=== PATIENT | female | born 1950 | race African-American/Black ===

== ENCOUNTER 2017-04-30 08:41 | Emergency (ER) | payer MEDICARE, OTHER ==
[2017-04-30] MEDS ORDERED: ASPIRIN 81 MG TABLET, CHEWABLE PO ONE (08:43)
[2017-04-30] MEDS ORDERED: MAG HYDROX/AL HYDROX/SIMETH SUSP 30 ML UDCUP PO ONE (09:26)
[2017-04-30] MEDS ORDERED: METOCLOPRAMIDE HCL ORAL SOLN 10 MG/10 ML UDCUP PO ONE (09:26)
[2017-04-30] MEDS ORDERED: LIDOCAINE 2% VISCOUS SOLN 20 ML UDCUP PO ONE (09:26)
[2017-04-30 09:34] LABS: ABSOLUTE LYMPHOCYTES (AUTO) 0.8 10^3/uL (0.5-4.7); ABSOLUTE MONOCYTES (AUTO) 0.5 10^3/uL (0.1-1.4); BASOPHILS % (AUTO) 0.3 % (0-2); EOSINOPHILS % (AUTO) 0.1 % (0-6); HEMATOCRIT 39.1 % (36.0-47.0); HEMOGLOBIN 13.1 g/dL (12.0-15.5); HGB HCT DIFFERENCE 0.2; LYMPHOCYTES % (AUTO) 9.5 % (13-45); MEAN CORPUSCULAR HEMOGLOBIN 30.6 pg (27.0-33.4); MEAN CORPUSCULAR HGB CONC 33.6 g/dL (32.0-36.0); MEAN CORPUSCULAR VOLUME 91 fl (80-97); MONOCYTES % (AUTO) 6.1 % (3-13); RED BLOOD COUNT 4.29 10^6/uL (3.72-5.28); RED CELL DISTRIBUTION WIDTH 14.2 % (11.5-14.0); WHITE BLOOD COUNT 8.3 10^3/uL (4.0-10.5)
--- NOTE | 2017-04-30 09:38 | ER Document Report ---
ED Cardiac - General Chief Complaint: Chest Pain > 30 Stated Complaint: CHEST PAIN Time Seen by Provider: 04/30/17 09:15 Information source: Patient Notes: Patient is a 67-year-old female that states the onset around 1 week ago of some substernal "pressure". She states it is not exertional. It is worse after she eats and lays flat. It is relieved when she sits upwards. She denies any radiation, nausea, vomiting, diaphoresis, calf pain, leg swelling, or recent trips or travel. Patient denies any past history of smoking. She denies any family history of early heart attacks or strokes. Patient states that the pressure has been intermittent and she went to the urgent care today with her primary care physician and she was referred to this location. Patient denies any abdominal pain cough, or shortness of breath when sitting upright. TRAVEL OUTSIDE OF THE [place] IN LAST 30 DAYS: No - HPI Patient complains to provider of: Other - See above Was the onset of pain: Gradual Is the pain a: New problem Chest pain location: Substernal Quality of pain: Other - See above Chest pain radiation location: None Severity now: None Severity at worst: Mild Pain level currently: Denies Chest pain precipitating factors: See above Cardiac risk factors: None Positive cardiac history: No Associated symptoms: Other - See above Exacerbated by: Other - See above Relieved by: Nothing Similar symptoms previously: No Recently seen / treated by doctor: Yes - Related Data Allergies/Adverse Reactions: Sulfa (Sulfonamide Antibiotics) Allergy (Verified 09/11/13 11:21) Past Medical History - General Information source: Patient - Social History Smoking Status: Never Smoker Cigarette use (# per day): No Chew tobacco use (# tins/day): No Smoking Education Provided: No Frequency of alcohol use: None Drug Abuse: None Family History: Reviewed & Not Pertinent Patient has suicidal ideation: No Patient has homicidal ideation: No Renal/ Medical History: Denies: Hx Peritoneal Dialysis - Immunizations Hx Diphtheria, Pertussis, Tetanus Vaccination: Yes Review of Systems - Review of Systems Constitutional: denies: Fever EENT: denies: Eye discharge, Nose discharge Cardiovascular: denies: Palpitations, Heart racing Respiratory: denies: Cough, Hemoptysis Gastrointestinal: denies: Vomiting Genitourinary: denies: Dysuria Musculoskeletal: denies: Leg swelling Skin: Other - no hives. denies: Rash Neurological/Psychological: Other - no slurred speech -: Yes All other systems reviewed and negative Physical Exam - Vital signs Vitals: Resp Pulse Ox 15 97 04/30/17 08:55 04/30/17 08:55 Notes: Reviewed vital signs and nursing note as charted by RN. CONSTITUTIONAL: Alert and oriented and responds appropriately to questions. Well -appearing; well-nourished HEAD: Normocephalic; atraumatic CARD: Regular rate and rhythm; no murmurs, no clicks, no rubs, no gallops; symmetric distal pulses RESP: Normal chest excursion without splinting or tachypnea; breath sounds clear and equal bilaterally; no wheezes, no rhonchi, no rales ABD/GI: Normal bowel sounds; non-distended; soft, non-tender palpation of the upper quadrant of the abdomen BACK: The back appears normal and is non-tender to palpation, there is no CVA tenderness EXT: Normal ROM in all joints; non-tender to palpation; no cyanosis, no effusions, no edema SKIN: No acute lesions noted NEURO: Moves all extremities equally; Motor and sensory function intact PSYCH: The patient's mood and manner are appropriate. Grooming and personal hygiene are appropriate. Course - Re-evaluation Re-evalutation: 04/30/17 09:36 Given the history, physical, EKG as recorded, vital signs, pressure when laying flat and relieved when sitting up as well as exacerbated by food, with no abdominal tenderness, I will obtain basic labs, cardiac labs, BNP, and treat the patient with an acid medications initially. I do believe pulmonary embolism , aortic dissection, or esophageal rupture to be extremely unlikely. Patient does not smoke, has no past medical history, has no family history, is not obese, and has a borderline EKG. EKG shows a heart of 90, normal sinus rhythm, normal axis, no obvious ST elevation or depression, flattening T waves in leads III, aVF, V4 through V6 04/30/17 10:11 Initial troponin as recorded. Patient denies any pain or pressure at this time. BNP is recorded. Chest x-ray shows normal heart, normal mediastinum, no fractures, normal lung goff, no pneumothorax. 04/30/17 10:13 Patient's heart score is a 3. Management Scores 0-3: 0.9-1.7% risk of adverse cardiac event. In the HEART Score study, these patients were discharged (0.99% in the retrospective study, 1.7% in the prospective study) The heart pathway, with a repeat 3 hour troponin, is even more sensitive. We will order a repeat 3 hour troponin. If this also is unremarkable, we will help expedite the patient's follow-up to a kiln burner with strict return precautions. 04/30/17 14:18 Second troponin as recorded. I called and spoke directly to the kiln burner, Dr. Murphy. I have explained the entire story. He is aware of the patient's physical, history, and repeat troponins. Repeat EKG shows a heart of 93, normal sinus rhythm, similar-appearing axis, continued flattening T waves laterally. Antit[employer] Assault Gunner is comfortable with the patient being discharged home and actually gave me his personal cell phone so that she can schedule follow-up appointment. Return precautions have been explained and we will start the patient on antacid medications. - Vital Signs Vital signs: Temp Pulse Resp BP Pulse Ox 98.2 F 15 139/69 H 95 04/30/17 08:56 04/30/17 11:04 04/30/17 11:04 04/30/17 11:04 - Laboratory Result Diagrams: 04/30/17 09:20 04/30/17 09:20 Laboratory results interpreted by me: 04/30/17 04/30/17 09:20 09:20 RDW 14.2 H Seg Neutrophils % 84.0 H Lymphocytes % 9.5 L Glucose 115 H Alkaline Phosphatase 128 H Discharge - Discharge Clinical Impression: Chest discomfort Condition: Good Disposition: HOME, SELF-CARE Additional Instructions: Come back immediately with any change in location or quality of pressure, leg swelling, fevers, vomiting, or any other acute problems. Please make sure you call the kiln burner, Dr. Murphy on his personal phone at [phone] when you are discharged today to help set up an expedited follow-up appointment with cardiology Prescriptions: Pantoprazole Sodium 20 mg PO DAILY #30 tablet.dr Referrals: APRIL LEPE MD [Primary Care Provider] - Follow up as needed
--- NOTE | 2017-04-30 09:41 | RADIOLOGY REPORT (SQ) ---
EXAM DESCRIPTION: CHEST SINGLE VIEW COMPLETED DATE/TIME: 04/30/2017 9:17 am REASON FOR STUDY: cp COMPARISON: None. EXAM PARAMETERS: NUMBER OF VIEWS: One view. TECHNIQUE: Single frontal radiographic view of the chest acquired. RADIATION DOSE: NA LIMITATIONS: None. FINDINGS: LUNGS AND PLEURA: Blunting of the left costophrenic angle most likely due to pleural thick ening. MEDIASTINUM AND HILAR STRUCTURES: No masses. Contour normal. HEART AND VASCULAR STRUCTURES: Cardiomegaly. Normal vasculature. BONES: No acute findings. HARDWARE: None in the chest. OTHER: No other significant finding. IMPRESSION: NO ACUTE RADIOGRAPHIC FINDING IN THE CHEST. TECHNICAL DOCUMENTATION: JOB ID: [id number] [employer]- All Rights Reserved
--- NOTE | 2017-04-30 09:54 | EKG REPORT ---
SEVERITY:- BORDERLINE ECG - SINUS RHYTHM BORDERLINE T ABNORMALITIES, INFERIOR LEADS : Confirmed by: Julio César Nice 30-Apr-2017 09:54:03
[2017-04-30 09:55] LABS: ALANINE AMINOTRANSFERASE 27 U/L (9-52); ALBUMIN 4.1 g/dL (3.5-5.0); ALKALINE PHOSPHATASE 128 U/L (38-126); ANION GAP 12 (5-19); ASPARTATE AMINO TRANSFERASE 21 U/L (14-36); BILIRUBIN,DIRECT 0.3 mg/dL (0.0-0.4); BILIRUBIN,TOTAL 1.3 mg/dL (0.2-1.3); BLOOD UREA NITROGEN 13 mg/dL (7-20); CALCIUM 9.4 mg/dL (8.4-10.2); CARBON DIOXIDE 26 mmol/L (22-30); CHLORIDE 103 mmol/L (98-107); CREATINE KINASE 76 U/L (30-135); CREATININE RESULT 0.77 mg/dL (0.52-1.25); GLUCOSE 115 mg/dL (75-110); POTASSIUM 4.2 mmol/L (3.6-5.0); SODIUM 140.9 mmol/L (137-145); TOTAL PROTEIN 7.3 g/dL (6.3-8.2)
[2017-04-30 10:07] LABS: CREATINE KINASE MB 0.24 ng/mL (<4.55)
[2017-04-30 10:09] LABS: TROPONIN I < 0.012 ng/mL
[2017-04-30 14:39] VITALS: BP 144/69
--- NOTE | 2017-04-30 20:46 | EKG REPORT ---
SEVERITY:- NORMAL ECG - SINUS RHYTHM : Confirmed by: Julio César Nice 30-Apr-2017 20:46:00
== END 2017-04-30 14:46 | disposition home or self-care (01) ==
LOC: ER 08:41
DX: R07.9 Chest pain, unspecified (principal); Z88.2 Allergy status to sulfonamides
CPT/HCPCS: 93005; 99285; 36415; 82553; 82550; 85025; 80053; 84484; 83880; 71010; 93010; J3490; A9270

== ENCOUNTER 2017-05-11 11:30 | Observation (INO) | payer MEDICARE, OTHER ==
[2017-05-11] MEDS ORDERED: ADENOSINE INJ/PF 6 MG/2 ML SDV IV ONE ×3 (11:52→12:08)
[2017-05-11] MEDS ORDERED: ASPIRIN 81 MG TABLET, CHEWABLE PO ONE (11:59)
[2017-05-11] MEDS ORDERED: LABETALOL HCL INJ 20 MG/4 ML DISP.SYRIN IV ONE (12:13)
--- NOTE | 2017-05-11 12:16 | ER Document Report ---
ED General - General Chief Complaint: Irregular Pulse Stated Complaint: RAPID HEART RATE Time Seen by Provider: 05/11/17 11:43 Mode of Arrival: Ambulatory Information source: Patient Notes: 67 yr old female presents with hx of chest pain from Dr Norris carr with concerns of heart racing. pt denies any fevers or chills. notes heart raced today. 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 IN LAST 30 DAYS: No - HPI Onset: Just prior to arrival Onset/Duration: Sudden Quality of pain: No pain Severity: Moderate Pain Level: Denies Associated symptoms: Shortness of breath Exacerbated by: Denies Relieved by: Denies Similar symptoms previously: Yes Recently seen / treated by doctor: Yes - Related Data Allergies/Adverse Reactions: Sulfa (Sulfonamide Antibiotics) Allergy (Verified 05/11/17 11:31) Home Medications: Current Home Medications No Home Medications 05/11/17 [History] Past Medical History - Social History Smoking Status: Never Smoker Cigarette use (# per day): No Chew tobacco use (# tins/day): No Smoking Education Provided: No Family History: Reviewed & Not Pertinent Renal/ Medical History: Denies: Hx Peritoneal Dialysis - Immunizations Hx Diphtheria, Pertussis, Tetanus Vaccination: Yes Review of Systems - Review of Systems Notes: REVIEW OF SYSTEMS: CONSTITUTIONAL : Denies fever, chills, or sweats. Denies recent illness. EENT: Denies eye, ear, throat, or mouth pain or symptoms. Denies nasal or sinus congestion or discharge. Denies throat, tongue, or mouth swelling or difficulty swallowing. CARDIOVASCULAR: admits to palpitations RESPIRATORY: Denies cough, cold, or chest congestion. Denies shortness of breath, difficulty breathing, or wheezing. GASTROINTESTINAL: Denies abdominal pain or distention. Denies nausea, vomiting , or diarrhea. Denies blood in vomitus, stools, or per rectum. Denies black, tarry stools. Denies constipation. GENITOURINARY: Denies difficulty urinating, painful urination, burning, frequency, blood in urine, or discharge. FEMALE GENITOURINARY: Denies vaginal bleeding, heavy or abnormal periods, irregular periods. Denies vaginal discharge or odor. MUSCULOSKELETAL: Denies back or neck pain or stiffness. Denies joint pain or swelling. SKIN: Denies rash, lesions or sores. HEMATOLOGIC : Denies easy bruising or bleeding. LYMPHATIC: Denies swollen, enlarged glands. NEUROLOGICAL: Denies confusion or altered mental status. Denies passing out or loss of consciousness. Denies dizziness or lightheadedness. Denies headache. Denies weakness or paralysis or loss of use of either side. Denies problems with gait or speech. Denies sensory loss, numbness, or tingling. Denies seizures. PSYCHIATRIC: Denies anxiety or stress. Denies depression, suicidal ideation, or homicidal ideation. ALL OTHER SYSTEMS REVIEWED AND NEGATIVE. PHYSICAL EXAMINATION: GENERAL: Well-appearing, well-nourished and in no acute distress. HEAD: Atraumatic, normocephalic. EYES: Pupils equal round and reactive to light, extraocular movements intact, conjunctiva are normal. ENT: Nares patent, oropharynx clear without exudates. Moist mucous membranes. NECK: Normal range of motion, supple without lymphadenopathy LUNGS: Breath sounds clear to auscultation bilaterally and equal. No wheezes rales or rhonchi. HEART: initially pt is in svt 160s, then intermittently NSR, then back into afib ABDOMEN: Soft, nontender, nondistended abdomen. No guarding, no rebound. No masses appreciated. Female : deferred Musculoskeletal: Normal range of motion, no pitting or edema. No cyanosis. NEUROLOGICAL: Cranial nerves grossly intact. Normal speech, normal gait. Normal sensory, motor exams PSYCH: Normal mood, normal affect. SKIN: Warm, Dry, normal turgor, no rashes or lesions noted. Dictation was performed using [employer] voice recognition software Physical Exam - Vital signs Vitals: Temp Pulse Resp BP Pulse Ox 98.5 F 162 H 18 122/80 96 05/11/17 11:42 05/11/17 11:42 05/11/17 11:42 05/11/17 11:42 05/11/17 11:42 Course - Re-evaluation Re-evalutation: 05/11/17 12:15 Patient noted to be in SVT in the 160s upon arrival, adenosine was drawn but she immediately converted, by the time we attempted to get another EKG she went back into SVT again. And then reconverted again. Pt given metoprolol 05/11/17 12:59 Pt now in afib. Will admit 05/11/17 19:45 Patient intermittently will go back up to the 140s is in no distress denies any chest pain - Vital Signs Vital signs: Temp Pulse Resp BP Pulse Ox 98.4 F 91 18 110/56 L 98 05/11/17 17:35 05/11/17 17:35 05/11/17 17:35 05/11/17 17:35 05/11/17 17:24 - Laboratory Result Diagrams: 05/11/17 11:46 05/11/17 11:46 Laboratory results interpreted by me: 05/11/17 05/11/17 11:46 11:46 RDW 14.5 H Plt Count 494 H Seg Neutrophils % 81.7 H Lymphocytes % 11.1 L Absolute Neutrophils 8.5 H Glucose 142 H Total Bilirubin 1.8 H Direct Bilirubin 0.9 H AST 64 H ALT 63 H Alkaline Phosphatase 216 H - Diagnostic Test Radiology reviewed: Image reviewed, Reports reviewed - EKG Interpretation by Me EKG shows normal: Sinus rhythm, [place], Intervals, QRS Complexes, ST-T Waves Rhythm: SVT When compared to previous EKG there are: Other - 3 EKGs were performed to noting SVT Critical Care Note - Critical Care Note Total time excluding time spent on procedures (mins): 55 Comments: 55 minutes of critical care time spent in direct contact evaluating and reevaluating the patient, treating symptoms, reviewing labs and studies and speaking with family and consultants excluding any procedures Discharge - Discharge Clinical Impression: Atrial fibrillation with RVR, SVT (supraventricular tachycardia) Condition: Stable Disposition: ADMITTED INPATIENT Admitting Provider: Hospitalist Unit Admitted: Telemetry
[2017-05-11 12:21] LABS: ABSOLUTE BASOPHILS # (AUTO) 0.1 10^3/uL (0.0-0.2); ABSOLUTE LYMPHOCYTES (AUTO) 1.1 10^3/uL (0.5-4.7); ABSOLUTE MONOCYTES (AUTO) 0.6 10^3/uL (0.1-1.4); ABSOLUTE NEUT (AUTO) 8.5 10^3/uL (1.7-8.2); BASOPHILS % (AUTO) 0.6 % (0-2); EOSINOPHILS % (AUTO) 0.4 % (0-6); HEMATOCRIT 37.6 % (36.0-47.0); HEMOGLOBIN 12.5 g/dL (12.0-15.5); HGB HCT DIFFERENCE -0.1; LYMPHOCYTES % (AUTO) 11.1 % (13-45); MEAN CORPUSCULAR HEMOGLOBIN 29.8 pg (27.0-33.4); MEAN CORPUSCULAR HGB CONC 33.2 g/dL (32.0-36.0); MEAN CORPUSCULAR VOLUME 90 fl (80-97); MONOCYTES % (AUTO) 6.2 % (3-13); RED CELL DISTRIBUTION WIDTH 14.5 % (11.5-14.0); SEGMENTED NEUTROPHILS % (AUTO) 81.7 % (42-78); WHITE BLOOD COUNT 10.3 10^3/uL (4.0-10.5)
[2017-05-11 12:41] LABS: ALANINE AMINOTRANSFERASE 63 U/L (9-52); ALBUMIN 3.6 g/dL (3.5-5.0); ALKALINE PHOSPHATASE 216 U/L (38-126); ANION GAP 18 (5-19); ASPARTATE AMINO TRANSFERASE 64 U/L (14-36); BILIRUBIN,DIRECT 0.9 mg/dL (0.0-0.4); BILIRUBIN,TOTAL 1.8 mg/dL (0.2-1.3); BLOOD UREA NITROGEN 16 mg/dL (7-20); CALCIUM 9.2 mg/dL (8.4-10.2); CARBON DIOXIDE 25 mmol/L (22-30); CHLORIDE 100 mmol/L (98-107); CREATINE KINASE 43 U/L (30-135); CREATININE RESULT 0.79 mg/dL (0.52-1.25); GLUCOSE 142 mg/dL (75-110); POTASSIUM 4.4 mmol/L (3.6-5.0); SODIUM 143.3 mmol/L (137-145); TOTAL PROTEIN 7.5 g/dL (6.3-8.2)
[2017-05-11 12:54] LABS: CREATINE KINASE MB < 0.22 ng/mL (<4.55); TROPONIN I < 0.012 ng/mL
--- NOTE | 2017-05-11 12:56 | RADIOLOGY REPORT (SQ) ---
EXAM DESCRIPTION: CHEST SINGLE VIEW COMPLETED DATE/TIME: 05/11/2017 12:42 pm REASON FOR STUDY: svt COMPARISON: 04/30/2017 EXAM PARAMETERS: NUMBER OF VIEWS: One view. TECHNIQUE: Single frontal radiographic view of the chest acquired. RADIATION DOSE: NA LIMITATIONS: None. FINDINGS: LUNGS AND PLEURA: There is a left pleural effusion. There is no infiltrate. There is no mass. MEDIASTINUM AND HILAR STRUCTURES: No masses. Contour normal. HEART AND VASCULAR STRUCTURES: Cardiomegaly with no failure. BONES: No acute findings. HARDWARE: None in the chest. OTHER: No other significant finding. IMPRESSION: Cardiomegaly with no failure. Left pleural effusion. TECHNICAL DOCUMENTATION: JOB ID: [id number] [employer]- All Rights Reserved
--- NOTE | 2017-05-11 13:41 | EKG REPORT ---
SEVERITY:- BORDERLINE ECG - SINUS TACHYCARDIA ALSO CONSIDER A FLUTTER WITH 2:1 CONDUCTION BORDERLINE T ABNORMALITIES, INFERIOR LEADS : Confirmed by: Julio César Nice 11-May-2017 13:41:19
--- NOTE | 2017-05-11 13:43 | EKG REPORT ---
SEVERITY:- ABNORMAL ECG - SUPRAVENTRICULAR TACHYCARDIA VS SINUS TACHYCARDIA BORDERLINE T ABNORMALITIES, LATERAL LEADS : Confirmed by: Julio César Nice 11-May-2017 13:42:51
[2017-05-11] MEDS ORDERED: ACETAMINOPHEN 325 MG TABLET PO PRN (14:16)
--- NOTE | 2017-05-11 14:42 | PDOC H&P ---
History of Present Illness Admission Date/PCP: 05/11/17 13:15 APRIL LEPE MD History of Present Illness: LIBBY BEARD is a 67 year old -[place] female with past medical history of recently diagnosed GERD who presents to the medical service with complaints of rapid heart rate. The patient was seen here initially back on 30 April. At that point she was noted to have elevated heart rate but it seemed to go down on its own. The treating ED physician felt that she likely had acid reflux and prescribed a PPI. The patient was supposed to follow-up in the office of Dr. Pisano for the rapid heart rate that was noted. She did that today. In the office her heart rate was found to be 160 and she was sent over to the emergency room. In the emergency room she was found to be in what what was felt to be SVT. The ED physician prepared to give her adenosine when the patient spontaneously converted to sinus rhythm. After a few more moments the patient went back into what looks like SVT. Once again the ED physician prepared to administer adenosine when she spontaneously occurred converted into sinus rhythm. Shortly thereafter the patient went into rapid atrial fibrillation. The ED physician gave her a dose of labetalol 20 mg IV. Currently her heart rate is at 117 at the bedside. Systolic blood pressure is 93 with a repeat at 103. The patient denies any palpitations or shortness of breath. She says she can tell when her heart rate increases because her breathing is "raspy." She does not feel it is shortness of breath or breathlessness. She denies any dizziness or associated lightheadedness. Past Medical History Medical History: None Past Surgical History Past Surgical History: Reports: Other - I and D of an abscess Social History Smoking Status: Never Smoker - Advance Directive Resuscitation Status: Full Code Family History Family History: None Parental Family History Reviewed: Yes - The patient's father at the age 59 from some sort of heart disease and Children Family History Reviewed: Yes Sibling(s) Family History Reviewed.: Yes - Patient has 5 siblings and they all have hypertension, diabetes and dyslipidemia. Medication/Allergy Home Medications: No Home Medications 05/11/17 Allergies/Adverse Reactions: Sulfa (Sulfonamide Antibiotics) Allergy (Verified 05/11/17 11:31) Review of Systems Review of Systems: Review of systems is pertinent as already listed in the HPI. In addition to this the patient states that she has been having sweats at night recently. She has had alternating diarrhea and constipation since she initially presented to the ED back on the fourth. She has had decreased appetite. This is occurred largely because she is afraid to eat with a diagnosis of GERD. She says that she has noted some spotting whenever she wipes after a bowel movement. She denies fevers, chills, nausea, vomiting, abdominal pain, unexplained weight changes, arthritis, visual changes, blood in the stool, blood in the urine, coughing up blood or throwing up blood. Her last meal was this morning. Physical Exam Vital Signs: Temp Pulse Resp BP Pulse Ox 98.5 F 162 H 17 102/60 96 05/11/17 11:42 05/11/17 11:42 05/11/17 13:05 05/11/17 13:51 05/11/17 13:51 Intake & Output 05/10/17 05/11/17 05/12/17 06:59 06:59 06:59 Weight 83.007 kg GENERAL: This a well-developed well-nourished appearing -[place] female resting in bed currently in no acute distress. HEENT: Normocephalic atraumatic. Sclera are anicteric. Trachea is midline. Moist mucous membranes. Dentition is fair. Mallampati 3. HEART: Tachycardic. No murmurs, rubs or gallops. LUNGS: Clear to auscultation bilaterally with equal rise and fall of the chest. ABDOMEN: Soft, nontender, nondistended with normoactive bowel sounds EXTREMETIES: No clubbing, cyanosis or edema. 2+ peripheral pulses bilaterally. Strength is 5 out of 5 in both the upper and lower extremities bilaterally. NEURO: Awake, alert and oriented 3. Cranial nerves II through XII are specifically intact. Results Impressions: Chest X-Ray 05/11/17 11:59 IMPRESSION: Cardiomegaly with no failure. Left pleural effusion. Assessment & Plan - Diagnosis (1) Atrial fibrillation with RVR Is this a current diagnosis for this admission?: Yes Plan: Begin metoprolol 25 every 12 hours. Cardiology has been consulted. The patient follows with Dr. Pisano. Dr. Huang on duty today. The patient is sustained in A. fib, will consider novel anticoagulant. Maintain rates at 110 or less. At the bedside the patient is currently 117. (2) SVT (supraventricular tachycardia) Is this a current diagnosis for this admission?: Yes Plan: Management as above. Ultimately the patient may need to see EP cardiology. (3) GERD (gastroesophageal reflux disease) Is this a current diagnosis for this admission?: Yes Plan: Continue omeprazole. - Time Time Spent: 30 to 50 Minutes - Inpatient Certification Medical Necessity: Need Close Monitoring Due to Risk of Patient Decompensation
[2017-05-11] MEDS ORDERED: ENOXAPARIN SODIUM INJ 40 MG/0.4 ML DISP.SYRIN SUBCUT ONE (15:00)
[2017-05-11] MEDS ORDERED: LABETALOL HCL INJ 20 MG/4 ML DISP.SYRIN IV PRN (17:21)
[2017-05-11] MEDS: FAMOTIDINE 20 MG TABLET PO SCH (21:53)
[2017-05-11] MEDS: METOPROLOL SUCCINATE 25 MG TAB.SR.24H PO SCH (21:53)
[2017-05-12 05:12] LABS: ABSOLUTE BASOPHILS # (AUTO) 0.1 10^3/uL (0.0-0.2); ABSOLUTE EOSINOPHILS # (AUTO) 0.1 10^3/uL (0.0-0.6); ABSOLUTE LYMPHOCYTES (AUTO) 1.4 10^3/uL (0.5-4.7); ABSOLUTE MONOCYTES (AUTO) 0.8 10^3/uL (0.1-1.4); ABSOLUTE NEUT (AUTO) 6.1 10^3/uL (1.7-8.2); BASOPHILS % (AUTO) 0.6 % (0-2); EOSINOPHILS % (AUTO) 0.7 % (0-6); HEMATOCRIT 30.6 % (36.0-47.0); HGB HCT DIFFERENCE 0.6; LYMPHOCYTES % (AUTO) 16.4 % (13-45); MEAN CORPUSCULAR HEMOGLOBIN 30.3 pg (27.0-33.4); MEAN CORPUSCULAR HGB CONC 33.9 g/dL (32.0-36.0); MEAN CORPUSCULAR VOLUME 90 fl (80-97); MONOCYTES % (AUTO) 9.6 % (3-13); RED BLOOD COUNT 3.42 10^6/uL (3.72-5.28); RED CELL DISTRIBUTION WIDTH 14.6 % (11.5-14.0); SEGMENTED NEUTROPHILS % (AUTO) 72.7 % (42-78); WHITE BLOOD COUNT 8.4 10^3/uL (4.0-10.5)
[2017-05-12 05:26] LABS: HEMOGLOBIN 10.4 g/dL (12.0-15.5)
[2017-05-12 05:28] LABS: ANION GAP 12 (5-19); BLOOD UREA NITROGEN 13 mg/dL (7-20); CALCIUM 8.6 mg/dL (8.4-10.2); CARBON DIOXIDE 26 mmol/L (22-30); CHLORIDE 104 mmol/L (98-107); CREATININE RESULT 0.73 mg/dL (0.52-1.25); GLUCOSE 127 mg/dL (75-110); MAGNESIUM 1.9 mg/dL (1.6-2.3); POTASSIUM 4.6 mmol/L (3.6-5.0); SODIUM 141.8 mmol/L (137-145)
--- NOTE | 2017-05-12 05:55 | EKG REPORT ---
SEVERITY:- NORMAL ECG - SINUS RHYTHM : Confirmed by: Julio César Nice 12-May-2017 05:54:21
[2017-05-12] MEDS: METOPROLOL SUCCINATE 25 MG TAB.SR.24H PO SCH (09:58)
[2017-05-12] MEDS: FAMOTIDINE 20 MG TABLET PO SCH ×2 (09:58→22:32)
[2017-05-12] MEDS: ENOXAPARIN SODIUM INJ 40 MG/0.4 ML DISP.SYRIN SUBCUT SCH (09:59)
[2017-05-12 10:20] LABS: FOLATE > 20.00 ng/mL (>2.76)
--- NOTE | 2017-05-12 11:29 | RADIOLOGY REPORT (SQ) ---
EXAM DESCRIPTION: CHEST PA/LAT COMPLETED DATE/TIME: 05/12/2017 11:14 am REASON FOR STUDY: cough/fever COMPARISON: 05/11/2017. 04/30/2017. TECHNIQUE: Frontal and lateral radiographic views of the chest acquired. NUMBER OF VIEWS: Two view. LIMITATIONS: None. FINDINGS: LUNGS AND PLEURA: Small left pleural effusion with associated left lower lobe volume loss. Doubt significant change compared to yesterday's radiograph. MEDIASTINUM AND HILAR STRUCTURES: 3.5 cm electronic appearing foreign body projects over the mid medi astinum. Seen on yesterday's exam. Not seen on 04/30/2017 study allowing for overlying monitor lead artifact. Presumably related to instrumentation. Ingested esophageal foreign body would otherwise b e in the differential. HEART AND VASCULAR STRUCTURES: Heart normal size. No evidence for failure. BONES: No acute findings. HARDWARE: See above. No other lines or tubes appreciated. OTHER: No other significant finding. IMPRESSION: 1. Chronic left lung changes. Left lower lobe volume loss and small associated pleural effusion. 2. Instrumentation versus artifact projecting over the mediastinum. TECHNICAL DOCUMENTATION: JOB ID: [id number] [employer]- All Rights Reserved
--- NOTE | 2017-05-12 15:39 | RADIOLOGY REPORT (SQ) ---
EXAM DESCRIPTION: CTA CHEST COMPLETED DATE/TIME: 05/12/2017 3:12 pm REASON FOR STUDY: SVT/Foriegn Body Left chest. COMPARISON: Radiographs from recently. TECHNIQUE: CT scan of the chest performed using helical scanning technique with dynamic intravenous contrast injection. Images reviewed with lung, soft tissue and bone windows. Reconstructed coronal and sagittal MPR images reviewed. Additional 3 dimensional post-processing performed to develop Maximal Intensity Projection images (VA P). All images stored on PACS. All CT scanners at this facility use dose modulation, iterative reconstruction, and/or weight based d osing when appropriate to reduce radiation dose to as low as reasonably achievable (ALARA). [facility]: Dose Right [facility]: CareDose [facility]: Dose Right [facility]: Teradose 4D [facility]: Kiddify CONTRAST TYPE AND DOSE: contrast/concentration: Isovue 370.00 mg/ml; Total Contrast Delivered: 72.9 ml; Total Saline Delivered: 80.0 ml Contrast bolus optimized for the pulmonary arteries. Not diagnostic for the aorta RENAL FUNCTION: Creatinine 0.7 RADIATION DOSE: CT Rad equipment meets quality standard of care and radiation dose reduction techniq ues were employed. CTDIvol: 14.6 - 39.7 mGy. DLP: 574 mGy-cm. . LIMITATIONS: None. FINDINGS: LUNGS AND PLEURA: Bilateral small to moderate pleural effusions. Associated mild volume l oss/ consolidation in the lung bases. More pronounced on the left. AORTA AND GREAT VESSELS: Sub optimal valuation of the aorta. No gross aneurysm. HEART: Mild pericardial effusion. Heart size enlarged. No significant coronary artery calcifications . PULMONARY ARTERIES: No emboli visualized in the main pulmonary arteries or the segmental branches. HILAR AND MEDIASTINAL STRUCTURES: No adenopathy. Metallic artifact in the mid esophagus appears to c orrelate with foreign body seen on chest radiographs. HARDWARE: None in the chest. UPPER ABDOMEN: Reflux of dense contrast into the IVC and slightly dilated hepatic veins. This sugges ts cardiac dysfunction. THYROID AND OTHER SOFT TISSUES: No masses. No adenopathy. BONES: No acute or significant finding. 3D MIPS: Confirm above findings. OTHER: No other significant finding. IMPRESSION: 1. Effusions, cardiac enlargement and reflux of contrast into upper abdominal veins. S uggestive of cardiac dysfunction. 2. Small pericardial effusion. 3. No pulmonary embolus. 4. Fore ign body is confirmed within the esophagus, uncertain etiology. COMMENT: Quality ID # [id number]: Final reports with documentation of one or more dose reduction techniques (e.g., Automated exposure control, adjustment of the mA and/or kV according to patient size, use of iterative reconstruction technique) TECHNICAL DOCUMENTATION: JOB ID: [id number] [employer]- All Rights Reserved
--- NOTE | 2017-05-12 18:48 | PDOC PROGRESS REPORT ---
Subjective Progress Note for:: 05/12/17 Subjective:: This is a follow-up visit for SVT. No acute events overnight. Patient was maintained quite well on metoprolol. Await Dr. Huang as evaluation. Patient has developed a cough overnight. Is nonproductive. Reason For Visit: ATRIAL FIBRILLATION WITH RAPID VENTRICULAR RESPONS Physical Exam Vital Signs: Temp Pulse Resp BP Pulse Ox 99.4 F 56 L 20 127/53 H 99 05/12/17 07:22 05/12/17 07:22 05/12/17 07:22 05/12/17 07:22 05/12/17 07:22 Intake & Output 05/11/17 05/12/17 05/13/17 06:59 06:59 06:59 Intake Total 5 Balance 5 Weight 83.1 kg GENERAL: This a well-developed well-nourished appearing -[place] female resting in bed currently in no acute distress. HEART: Regular rate and rhythm with frequent extra beats. No murmurs, rubs or gallops. LUNGS: Diminished at the bases bilaterally with equal rise and fall of the chest. ABDOMEN: Soft, nontender, nondistended with normoactive bowel sounds EXTREMETIES: No clubbing, cyanosis or edema. 2+ peripheral pulses bilaterally. NEURO: Awake, alert and oriented 3. Cranial nerves II through XII are specifically intact. Results Laboratory Results: 05/12/17 04:19 05/12/17 04:19 05/12/17 05/12/17 05/12/17 04:19 04:19 04:19 WBC 8.4 RBC 3.42 L Hgb 10.4 L D Hct 30.6 L MCV 90 MCH 30.3 MCHC 33.9 RDW 14.6 H Plt Count 385 Seg Neutrophils % 72.7 Lymphocytes % 16.4 Monocytes % 9.6 Eosinophils % 0.7 Basophils % 0.6 Absolute Neutrophils 6.1 Absolute Lymphocytes 1.4 Absolute Monocytes 0.8 Absolute Eosinophils 0.1 Absolute Basophils 0.1 Retic Count (auto) 1.31 Absolute Retic 0.045 Sodium 141.8 Potassium 4.6 Chloride 104 Carbon Dioxide 26 Anion Gap 12 BUN 13 Creatinine 0.73 Est GFR ( Amer) > 60 Est GFR (Non-Af Amer) > 60 Glucose 127 H Calcium 8.6 Magnesium 1.9 Iron TIBC % Saturation Ferritin Vitamin B12 Folate 05/12/17 04:19 WBC RBC Hgb Hct MCV MCH MCHC RDW Plt Count Seg Neutrophils % Lymphocytes % Monocytes % Eosinophils % Basophils % Absolute Neutrophils Absolute Lymphocytes Absolute Monocytes Absolute Eosinophils Absolute Basophils Retic Count (auto) Absolute Retic Sodium Potassium Chloride Carbon Dioxide Anion Gap BUN Creatinine Est GFR ( Amer) Est GFR (Non-Af Amer) Glucose Calcium Magnesium Iron 14.3 L TIBC 177 L % Saturation 8 Ferritin 682.00 H Vitamin B12 > 1000.0 H Folate > 20.00 05/11/17 15:42 Troponin I < 0.012 Impressions: Chest X-Ray 05/12/17 00:00 IMPRESSION: 1. Chronic left lung changes. Left lower lobe volume loss and small associated pleural effusion. 2. Instrumentation versus artifact projecting over the mediastinum. Chest/Abdomen CTA 05/12/17 00:00 IMPRESSION: 1. Effusions, cardiac enlargement and reflux of contrast into upper abdominal veins. Suggestive of cardiac dysfunction. 2. Small pericardial effusion. 3. No pulmonary embolus. 4. Foreign body is confirmed within the esophagus, uncertain etiology. Assessment & Plan - Diagnosis (1) Atrial fibrillation with RVR Is this a current diagnosis for this admission?: Yes Plan: Begin metoprolol 25 every 12 hours. Cardiology has been consulted. The patient follows with Dr. Pisano. Dr. Huang on duty today. The patient is now in sinus arrhythmia at a rate of 90. (2) SVT (supraventricular tachycardia) Is this a current diagnosis for this admission?: Yes Plan: Management as above. Ultimately the patient may need to see EP cardiology. (3) GERD (gastroesophageal reflux disease) Is this a current diagnosis for this admission?: Yes Plan: Continue omeprazole. - Time Time Spent with patient: 15-24 minutes Anticipated discharge: Home
--- NOTE | 2017-05-12 18:53 | Progress Note ---
Provider Note Provider Note: Spoke with Dr. Huang after I saw the patient who has seen the patient's chest x-ray and is concerned that we should check a CTA. He is already ordered this. CTA came back revealing foreign body and small pleural effusions. Notified by the patient's nurse that the patient now remembers that she had some sort of device implanted for her acid reflux. The only thing I can imagine that this is is some sort of pH monitor that would have been inserted. Will need to contact surgery since GI is not on service. I did speak with Dr. Mann by phone who was looked at the patient's scans. Given the patient's history is most likely a pH probe that will eventually passed after about a week. Given the lateness of the hour and the fact that the nurses just informed me that the patient had a transient rise in her heart rate on the way down to have the CAT scan, the patient will remain in house. We will continue to monitor not only her heart rate but her cough and any transient shortness of breath. Will increase metoprolol.
--- NOTE | 2017-05-12 18:54 | CONSULTATION REPORT E ---
Consultation Report NAME: LIBBY BEARD : 1950 AGE: 67Y DATE: 05/12/2017 ROOM: 306 A TO: JOSE HEARD M.D. FROM: CAMILLA TRONCOSO M.D. Requesting Physician TELEPHONE CONSULTATION REFERRING PHYSICIAN: The patient seen at the request of Dr. Troncoso. CHIEF COMPLAINT: Foreign body in the esophagus. PER CONSULTATION: The patient is a 67-year-old female who was admitted to the hospital with chest pain approximately 2 days ago. She was evaluated and found to have supraventricular tachycardia. She was managed on the hospital service with anti-dysrhythmic. She had a CTA of her chest to rule out pulmonary embolism which was negative for such but was found to have a foreign body in her esophagus. Surgery was consulted. Of note, the patient reports that approximately 3 days ago she underwent a pH probe monitor insertion at an outlying institution. Past medical and surgical history found in history and physical document, as well as review of systems and so forth. IMAGING STUDIES: I reviewed the CTA on the patient. There is a longitudinal metallic structure with scatter artifact in the distal third of the esophagus. There is no paraesophageal fluid, extravasation, etcetera. IMPRESSION: Foreign body of the esophagus consistent with a Matos pH monitoring device inserted last week during elective pH monitoring activation. No evidence of pathologic sequelae. DISCUSSION: I spoke with Dr. Troncoso. It is not uncommon for the pH Matos device to remain attached to the distal third of the esophagus for up to a week after insertion. The mucosa eventually with slough permitting the tubular device to leave the esophagus and pass through the GI tract uneventfully. There is no indication for further intervention. Please consult again if needed. DICTATING PHYSICIAN: JOSE HEARD M.D. [id number] PHY#: [id number] ID: [id number] JOB#: [id number] ACCT: [id number] cc:JOSE HEARD M.D. >
[2017-05-12] MEDS ORDERED: METOPROLOL SUCCINATE 50 MG TAB.SR.24H PO ONE ×2 (19:15→22:30)
[2017-05-12] MEDS ORDERED: METOPROLOL TARTRATE 50 MG TABLET ONE (22:21)
--- NOTE | 2017-05-12 23:11 | EKG REPORT ---
SEVERITY:- NORMAL ECG - SINUS RHYTHM : Confirmed by: Julio César Nice 12-May-2017 23:10:12
[2017-05-13 05:08] LABS: ABSOLUTE BASOPHILS # (AUTO) 0.1 10^3/uL (0.0-0.2); ABSOLUTE EOSINOPHILS # (AUTO) 0.1 10^3/uL (0.0-0.6); ABSOLUTE LYMPHOCYTES (AUTO) 1.2 10^3/uL (0.5-4.7); ABSOLUTE MONOCYTES (AUTO) 0.8 10^3/uL (0.1-1.4); ABSOLUTE NEUT (AUTO) 7.3 10^3/uL (1.7-8.2); BASOPHILS % (AUTO) 0.6 % (0-2); EOSINOPHILS % (AUTO) 0.8 % (0-6); HEMATOCRIT 30.8 % (36.0-47.0); HEMOGLOBIN 10.2 g/dL (12.0-15.5); HGB HCT DIFFERENCE -0.2; LYMPHOCYTES % (AUTO) 13.1 % (13-45); MEAN CORPUSCULAR HEMOGLOBIN 29.8 pg (27.0-33.4); MEAN CORPUSCULAR HGB CONC 33.2 g/dL (32.0-36.0); MEAN CORPUSCULAR VOLUME 90 fl (80-97); MONOCYTES % (AUTO) 8.6 % (3-13); RED BLOOD COUNT 3.42 10^6/uL (3.72-5.28); RED CELL DISTRIBUTION WIDTH 14.4 % (11.5-14.0); SEGMENTED NEUTROPHILS % (AUTO) 76.9 % (42-78); WHITE BLOOD COUNT 9.5 10^3/uL (4.0-10.5)
[2017-05-13 05:33] LABS: ANION GAP 11 (5-19); BLOOD UREA NITROGEN 10 mg/dL (7-20); CALCIUM 8.4 mg/dL (8.4-10.2); CARBON DIOXIDE 26 mmol/L (22-30); CHLORIDE 103 mmol/L (98-107); CREATININE RESULT 0.67 mg/dL (0.52-1.25); GLUCOSE 123 mg/dL (75-110); MAGNESIUM 1.7 mg/dL (1.6-2.3); POTASSIUM 4.3 mmol/L (3.6-5.0)
[2017-05-13] MEDS ORDERED: METOPROLOL SUCCINATE 25 MG TAB.SR.24H PO SCH (10:00)
[2017-05-13] MEDS: ENOXAPARIN SODIUM INJ 40 MG/0.4 ML DISP.SYRIN SUBCUT SCH (10:25)
[2017-05-13] MEDS: FAMOTIDINE 20 MG TABLET PO SCH (10:25)
[2017-05-13 13:16] VITALS: BP 110/56
--- NOTE | 2017-05-13 16:29 | PDOC DISCHARGE SUMMARY ---
General - Admit/Disc Date/PCP Admission Date/Primary Care Provider: 05/11/17 13:15 APRIL LEPE MD Discharge Date: 05/13/17 - Discharge Diagnosis (1) Atrial fibrillation with RVR Is this a current diagnosis for this admission?: Yes (2) SVT (supraventricular tachycardia) Is this a current diagnosis for this admission?: Yes (3) GERD (gastroesophageal reflux disease) Is this a current diagnosis for this admission?: Yes - Additional Information Resuscitation Status: Full Code Prescriptions: Metoprolol Succinate 50 mg PO 12 #60 tab.er.24h Pantoprazole Sodium 40 mg PO DAILY #30 tablet. Home Medications: Metoprolol Succinate 50 mg PO 12 #60 tab.er.24h 05/13/17 Pantoprazole Sodium 40 mg PO DAILY #30 tablet. 05/13/17 History of Present Illness History of Present Illness: LIBBY BEARD is a 67 year old -[place] female with past medical history of recently diagnosed GERD who presents to the medical service with complaints of rapid heart rate. The patient was seen here initially back on 30 April. At that point she was noted to have elevated heart rate but it seemed to go down on its own. The treating ED physician felt that she likely had acid reflux and prescribed a PPI. The patient was supposed to follow-up in the office of Dr. Pisano for the rapid heart rate that was noted. She did that today. In the office her heart rate was found to be 160 and she was sent over to the emergency room. In the emergency room she was found to be in what what was felt to be SVT. The ED physician prepared to give her adenosine when the patient spontaneously converted to sinus rhythm. After a few more moments the patient went back into what looks like SVT. Once again the ED physician prepared to administer adenosine when she spontaneously occurred converted into sinus rhythm. Shortly thereafter the patient went into rapid atrial fibrillation. The ED physician gave her a dose of labetalol 20 mg IV. Currently her heart rate is at 117 at the bedside. Systolic blood pressure is 93 with a repeat at 103. The patient denies any palpitations or shortness of breath. She says she can tell when her heart rate increases because her breathing is "raspy." She does not feel it is shortness of breath or breathlessness. She denies any dizziness or associated lightheadedness. Hospital Course Hospital Course: Patient was admitted to the hospital and upon transfer to the floor went back into sinus rhythm. She was maintained on 25 mg twice daily of metoprolol. At times she would still breakthrough and become tachycardic. These episodes of tachycardia or SVT and would last for seconds at a time. Therefore, her metoprolol was increased to 50 mg twice a day. This seemed to offer better control. The patient was seen by Dr. Huang consultation wants to follow- up with her as an outpatient. Apparently she has an appointment on Sunday already. The patient also developed a cough while she was here by the second morning. No gretchen fevers but some low-grade temperatures. The cough was not productive. Chest x-ray showed small bilateral pleural effusions. CTA of the chest was done to rule out PE. CTA was negative for PE but did show a foreign body. After the fact the patient remembered that she had pH monitoring probe inserted. I contacted Dr. Mann who felt that this was a pH probe that had not yet passed through. Patient continued to do reasonably well on metoprolol. I advised her to continue Protonix as an outpatient until she could follow-up with her GI physician. I have advised her to increase her Protonix to 40 mg daily. If she still does not have relief after that she can certainly increase to twice daily. The patient has a primary care physician will need to follow- up within a week. She is felt stable to discharge Physical Exam Vital Signs: Temp Pulse Resp BP Pulse Ox 100.7 F H 103 H 18 138/61 H 100 05/13/17 08:14 05/13/17 08:14 05/13/17 08:14 05/13/17 08:14 05/13/17 08:14 Intake & Output 05/12/17 05/13/17 05/14/17 06:59 06:59 06:59 Intake Total 5 1008 Balance 5 1008 Weight 83.1 kg 89.8 kg GENERAL: This a well-developed well-nourished appearing -[place] female resting in bed currently in no acute distress. HEART: Regular rate and rhythm with frequent extra beats. No murmurs, rubs or gallops. LUNGS: Diminished at the bases bilaterally with equal rise and fall of the chest. ABDOMEN: Soft, nontender, nondistended with normoactive bowel sounds EXTREMETIES: No clubbing, cyanosis or edema. 2+ peripheral pulses bilaterally. NEURO: Awake, alert and oriented 3. Cranial nerves II through XII are specifically intact. Results Laboratory Results: 05/13/17 04:07 05/13/17 04:07 05/13/17 05/13/17 04:07 04:07 WBC 9.5 RBC 3.42 L Hgb 10.2 L Hct 30.8 L MCV 90 MCH 29.8 MCHC 33.2 RDW 14.4 H Plt Count 397 Seg Neutrophils % 76.9 Lymphocytes % 13.1 Monocytes % 8.6 Eosinophils % 0.8 Basophils % 0.6 Absolute Neutrophils 7.3 Absolute Lymphocytes 1.2 Absolute Monocytes 0.8 Absolute Eosinophils 0.1 Absolute Basophils 0.1 Sodium 140.0 Potassium 4.3 Chloride 103 Carbon Dioxide 26 Anion Gap 11 BUN 10 Creatinine 0.67 Est GFR ( Amer) > 60 Est GFR (Non-Af Amer) > 60 Glucose 123 H Calcium 8.4 Magnesium 1.7 05/11/17 15:42 Troponin I < 0.012 Impressions: Chest X-Ray 05/12/17 00:00 IMPRESSION: 1. Chronic left lung changes. Left lower lobe volume loss and small associated pleural effusion. 2. Instrumentation versus artifact projecting over the mediastinum. Chest/Abdomen CTA 05/12/17 00:00 IMPRESSION: 1. Effusions, cardiac enlargement and reflux of contrast into upper abdominal veins. Suggestive of cardiac dysfunction. 2. Small pericardial effusion. 3. No pulmonary embolus. 4. Foreign body is confirmed within the esophagus, uncertain etiology. Qualifiers PATEINT BEING DISCHARGED WITH ANY OF THE FOLLOWING DIAGNOSIS?: No Plan Time Spent: Less than 30 Minutes
--- NOTE | 2017-05-14 12:46 | CONSULTATION REPORT E ---
Consultation Report NAME: LIBBY BEARD : 1950 AGE: 67Y DATE: 05/12/2017 306 A TO: NARDA MENDOZA M.D. FROM: CAMILLA TRONCOSO M.D. Requesting Physician REASON FOR CONSULTATION: Self-terminating SVT. HISTORY: The patient is a 67-year-old -[place] female with no major medical illness except for GERD (gastroesophageal reflux disease), who was seen by Dr. Pisano for complaints of fatigue and weakness, and also a history of tachycardia. She was found to have a heart rate in the 160s to 170s, clearly SVT, and she was sent to the emergency room, where she spontaneously, after lying down, converted to sinus rhythm. When she converted to sinus rhythm, there were no multiple suggestive of atrial flutter, and hence most likely this was supraventricular tachycardia secondary to junctional tachycardia with AV-daylin reentrant tachycardia. The patient in the past has had such problems with the heart rate being fast. She states that she had no shortness of breath. There was no chest pain or discomfort. She felt weak and had some dizziness, and after she was told that her heart rate was fast, at that time she had some brief awareness of palpitations. There was no syncope or near syncope. There is no pedal edema. There is no chest pain or discomfort. There are no TIA or CVA symptoms. PAST MEDICAL HISTORY: Positive for history of tachycardia, at present diagnosed most likely secondary to SVT, as mentioned earlier. She has no history of hypertension, no history of diabetes mellitus, no history of thyroid disease. No history of coronary artery disease and angina or IN. No history of congestive heart failure. No history of TIA/CVA. No history of chronic kidney disease. She has a history of GERD and has had a GERD sphincter device placed in her esophagus, and her symptoms of GERD are much better. There are no seizures, headaches, or migraines. There is no history of GI bleed. PAST SURGICAL HISTORY: Positive for incision and drainage of left breast abscess. She has also had an esophageal sphincter device placed in the past. MEDICATIONS: 1. Tylenol 650 mg p.o. q. 4 hours p.r.n. 2. Lovenox 40 mg subcutaneously daily. 3. Pepcid 20 mg p.o. q. 12 hours. 4. Labetalol q. 4 hours p.r.n. 5. Metoprolol succinate (Toprol XL) 50 mg p.o. q. 12 hours. ALLERGIES: SHE IS ALLERGIC TO SULFA. FAMILY HISTORY: She states that her father had irregular heartbeat, but no history of coronary artery disease. Mother had history of hypertension but no coronary artery disease. SOCIAL HISTORY: She has never smoked. ADVANCED DIRECTIVE: THE PATIENT IS FULL CODE. Her is her surrogate healthcare decision maker. REVIEW OF SYSTEMS: CONSTITUTIONAL: Has generalized fatigue and weakness but no fevers, chills, or rigors. HEAD: Denies headache or head injury. EYES: No history of amblyopia or diplopia. No history of amaurosis fugax. EARS: No history of tinnitus. No history of hearing loss. No history of recurrent ear infections. NOSE: No history of hayfever. No history of nasal polyps. MOUTH: No history of altered taste sensation. No history of ulcers in the mouth. No history of bleeding from the gums. THROAT: No history of odynophagia or dysphagia. No history of recurrent sore throats. SKIN: No history of pruritus. No history of a yellowish discoloration of the skin. No history of skin cancer. No history of psoriasis. NECK: No history of neck pain. No history of swelling in the neck. No neck stiffness. No goiter. LUNGS: No history of asthma or COPD. No history of sleep apnea. No history of pulmonary embolism. No history of hemoptysis. No history of cough or sputum production. No symptoms of upper-respiratory infection or lower respiratory tract infection. No pleuritic chest pain. No hemoptysis. CARDIAC: No history of hypertension. No history of congestive heart failure. No history of coronary artery disease. Palpitations, now patient diagnosed with SVT, which self terminated. No history of PND, orthopnea, or ankle edema. Denies any shortness of breath, chest pain, or discomfort, even when she had the high heart rate due to the SVT. MUSCULOSKELETAL: Denies arthritis or collagen vascular disease. GASTROINTESTINAL: History of GERD, controlled with her esophageal sphincter device. No history of fatty food intolerance. No abdominal pain. No history of GI bleed. No history of cirrhosis. No history of jaundice. RENAL: No history of chronic kidney disease. No symptoms of UTI. No history of hematuria, pulmonary, or dysuria. No symptoms of recurrent urinary tract infections. ENDOCRINE: No history of diabetes mellitus. No history of thyroid disease. No history of polydipsia or polyuria. No history of heat or cold intolerance. METABOLIC: No history of obesity. No history of hyperlipidemia. CENTRAL NERVOUS SYSTEM: No history of TIA or CVA. No history of headaches, migraines, or seizures. No history of sleep apnea. No history of gait imbalance. PSYCHIATRIC: No history of anxiety or depression. No history of suicidal ideation. No history of homicidal ideation. VASCULAR: No history of calf or buttock claudication. No history of DVT. HEMATOLOGIC: No history of bleeding diathesis. No history of clotting disorders. PHYSICAL EXAMINATION: VITAL SIGNS: The patient is afebrile, temperature 98.2 degrees Fahrenheit. Pulse is 90 beats per minute. Blood pressure is 130/51. Respirations are 16 per minute. O2 sats are 92% on room air. HEAD: Atraumatic, normocephalic. EYES: Pupils are equal, round, regular, reactive to light and accommodation. Extraocular movements are normal. There is no conjunctival pallor. There is no scleral icterus. EARS: Tympanic membranes are intact. External auditory canals are clear. NOSE: There is no deviated nasal septum. There is no inflammation of the nasal mucous membrane. There are no nasal polyps. MOUTH: Mucous membranes of the mouth are moist. Tongue is moist. There are no ulcers. There is no bleeding from the gums. THROAT: There is no redness of the oropharynx. There is no exudate. SKIN: There are no skin rashes. There are no skin lesions. There is no petechiae or ecchymosis. NECK: Supple. There is no JVD. Carotids are equal. There is no bruit. There is no goiter. There is no JVD. Trachea is central. LUNGS: Clear to auscultation and percussion. There is no chest-wall tenderness. HEART: S1/S2 heard. There is no S3 gallop. There is no S4 gallop. There is a systolic murmur of mitral regurgitation, question of severity, in the apex with radiation to the left axilla. There is a systolic murmur in the left sternal border. No definite evidence of aortic stenosis or aortic regurgitation. ABDOMEN: Soft, nontender. There is no hepatosplenomegaly. Bowel sounds are well heard. There are no tender areas or masses. There is no rebound, guarding, or rigidity. EXTREMITIES: Femorals are well felt. Leg pulses are well felt. There are no femoral bruits. There is no pedal edema. There is no DVT or cellulitis. There is no calf tenderness. CENTRAL NERVOUS SYSTEM: The patient is conscious, awake, alert, oriented x3, with no focal deficit. PSYCHIATRIC: The patient's judgement and insight are intact. Her affect is normal. DIAGNOSTIC STUDIES: The patient's EKG done on the shows supraventricular tachycardia, borderline T abnormalities, lateral leads, most likely related to rate. The patient's subsequent EKG shows sinus rhythm; EKG within normal limits. Note that the EKG strips show that the patient, when she bears down, she spontaneously converts to sinus rhythm, making us believe that this is either a junctional tachycardia or AV-daylin reentrant tachycardia. Other EKG findings have been noted. Her EKG from today shows sinus rhythm; within normal limits. The patient's chest x-ray shows cardiomegaly with no failure. Left pleural effusion which is small. The patient's chest/abdomen CTA shows effusions, cardiac enlargement, reflux of contrast into upper-abdominal veins, suggestive of cardiac dysfunction. Small pericardial effusion. No pulmonary embolus. Foreign body is confirmed within the esophagus, uncertain etiology. The patient's laboratory data shows a white count of 8400, hemoglobin of 10.4, hematocrit of 30.6, platelet count of 385,000. The patient's sodium was 141.8, potassium 4.6, chloride is 104, CO2 is 26. The patient's BUN is 30, creatinine 0.73, GFR is greater than 60. Glucose is 127. The patient's iron is high at 14.3; her TIBC is 175, which is low; her transferrin is 8, and her ferritin was high at 682. The patient's calcium is 8.6, magnesium is 1.9. IMPRESSION: 1. Supraventricular tachycardia, most likely junctional tachycardia versus AV-daylin reentrant tachycardia. I will continue the patient on beta obed. 2. GERD. Continue current Pepcid. 3. Systolic murmur suggestive of mitral regurgitation. Will get an echo. 4. Cardiomegaly with evidence of cardiac dysfunction by pulmonary CTA. Will check an echo as an outpatient to see the reason for the cardiomegaly and the severity of the mitral regurgitation. 5. Pleural effusions, question of etiology. We will recheck the patient's chest x-ray in a week or two to make sure that there is resolution. In the meantime, we will send the patient home. Would recommend that the patient have a 30-day event monitor. Will have the patient have an IV Lexiscan Cardiolite stress test, and also will would recommend that the patient have an echocardiogram. All of this discussed with patient. I will give the patient and her my cell phone number to call me if she has any problems. These workups will be done in the office. Note that the patient was seen at 11:00 a.m. Forty-five minutes spent on this, more than 50% of the time spent on direct patient care. Subsequently, after CT scan of the chest was done, this was also reviewed and discussed with the patient. Will follow the patient in the office. Note that the patient's medications have been reviewed, and discussed the medication with the hospitalist taking care of the patient. Also note, medical decision making is of high complexity. Discussed the case with the patient and the patient's . Will follow with you. DICTATING PHYSICIAN: NARDA MENDOZA M.D. [id number] PHY#: [id number] ID: [id number] JOB#: [id number] ACCT: [id number] cc:NARDA MENDOZA M.D. >
== END 2017-05-13 13:39 | disposition home or self-care (01) ==
LOC: ER 11:30 → INTOOBSV 13:15 → EH 13:15 → 3N 16:54
PROVIDERS: ADMIT Hospitalist; ATTEND Hospitalist
DX: I48.91 Unspecified atrial fibrillation (principal); I47.1 Supraventricular tachycardia; K21.9 Gastro-esophageal reflux disease without esophagitis; R05 Cough; J90 Pleural effusion, not elsewhere classified; R01.1 Cardiac murmur, unspecified; I51.7 Cardiomegaly; Z82.49 Family history of ischemic heart disease and other diseases of the circulatory system; Z96.89 Presence of other specified functional implants
CPT/HCPCS: 93005 ×2; 99291; 96374; 36415 ×3; 82553; 82607; 82550; 82728; 82746; 83540; 83550; 83735 ×2; 84443; 85025 ×3; 85045; 80048 ×2; 80053; 84484; 84466; 71020; 71010; 71275; 93010 ×2; A9270 ×8; J3490; J1650 ×3

== ENCOUNTER → 2017-05-30 | Outpatient (CLI) | payer MEDICARE, OTHER ==
--- NOTE | 2017-05-31 09:17 | WOMENS IMAGING REPORT ---
EXAM DESCRIPTION: BILAT SCREENING MAMMO W/CAD COMPLETED DATE/TIME: 05/30/2017 2:27 pm REASON FOR STUDY: ROUTINE SCREENING; Z12.31 Z12.31 ENCNTR SCREEN MAMMOGRAM FOR MALIGNANT NEOPLASM O F SHIVA COMPARISON: No previous, baseline study TECHNIQUE: Standard craniocaudal and mediolateral oblique views of each breast recorded using [employer] acquisition. LIMITATIONS: None. FINDINGS: No masses, calcifications or architectural distortion. No areas of suspicion. Read with the assistance of CAD. .[facility] - R2 Cenova Version 1.3 .[facility] Imaging - R2 Cenova Version 1.3 .[facility] Imaging - R2 Cenova Version 2.4 .[facility] [place] [facility] - R2 Cenova Version 2.4 .[facility] - R2 [employer] Version 9.2 IMPRESSION: NORMAL MAMMOGRAM. BIRADS 1. BREAST DENSITY: b. There are scattered areas of fibroglandular density. BIRAD: 1 NEGATIVE RECOMMENDATION: ROUTINE SCREENING COMMENT: The patient has been notified of the results by letter per MQSA requirements. Additional no tification policies are in place for contacting patient with suspicious or incomplete findings. Quality ID #[id number]: The [employer] recommends an annual screening mammogram for women aged 40 years or over. This facility utilizes a reminder system to ensure that all patients receive reminder letters, and/or direct phone calls for appointments. This includes reminders for routine scr eening mammograms, diagnostic mammograms, or other Breast Imaging Interventions when appropriate. Th is patient will be placed in the appropriate reminder system. The [employer] (ACR) has developed recommendations for screening MRI of the breast s in certain patient populations, to be used in conjunction with mammography. Breast MRI surveillanc e may be appropriate for women with more than 20% lifetime risk of developing breast cancer as deter mined by genetic testing, significant family history of the disease, or history of mantle radiation f or Hodgkins Disease. ACR Practice Guidelines 2008. TECHNICAL DOCUMENTATION: FINDING NUMBER: (1) ASSESSMENT: (1) JOB ID: [id number] [employer]- All Rights Reserved
== END ==
LOC: WI 14:15
PROVIDERS: ATTEND Internal Medicine
DX: Z12.31 Encounter for screening mammogram for malignant neoplasm of breast (principal)
CPT/HCPCS: 77067

== ENCOUNTER → 2017-06-12 | Outpatient (CLI) | payer MEDICARE, OTHER ==
--- NOTE | 2017-06-13 19:36 | XCELERA REPORT ---
[address] [address] Transthoracic Echocardiogram Report Name: LIBBY BEARD Age: 67 yrs Gender: Female : 1950 Patient Status: Outpatient Patient Location: Study Date: 06/12/2017 11:04 AM Height: 67 in Weight: 183 lb BSA: 1.9 m2 Procedure: A two-dimensional transthoracic echocardiogram with color flow Doppler was performed. Study Quality: Fair. Reason For Study: PAROXYSMAL AFIB History: PAROXYSMAL AFIB. Ordering Physician: CARRIE MENDOZA Performed By: Baylee Kang Interpretation Summary The left ventricle is normal in size. There is normal left ventricular wall thickness. LV EF is > than 60% Left ventricular systolic function is normal. LV diastolic function not assessed. The left ventricular wall motion is normal. There is no thrombus. There is no ventricular septal defect visualized. The right atrium is normal. The left atrial size is normal. The interatrial septum is intact with no evidence for an atrial septal defect. There is no evidence of mitral valve prolapse. There is no mitral valve stenosis. There is a mild amount of mitral regurgitation There is no aortic valve stenosis There is no LVOT obstruction. No aortic regurgitation is present. There is no tricuspid stenosis. There is a mild amount of tricuspid regurgitation There is mild pulmonary hypertension by echo RVSP is 38 mm of Hg , with RA mean of 5. There is no pulmonic valvular stenosis. There is a trace amount of pulmonic regurgitation The aortic root is normal size. There is no pericardial effusion. MMode/2D Measurements & Calculations RVDd: 3.0 cm LVIDd: 4.1 cm FS: 30.1 % Ao root diam: 2.7 cm IVSd: 1.1 cm LVIDs: 2.8 cm EDV(Teich): 73.2 ml LVPWd: 0.91 cm ESV(Teich): 30.8 ml Ao root area: 5.7 cm2 EF(Teich): 57.9 % LA dimension: 2.8 cm Doppler Measurements & Calculations MV E max ankush: MV P1/2t max ankush: Ao V2 max: LV V1 max P.1 cm/sec 66.6 cm/sec 109.9 cm/sec 3.1 mmHg MV A max ankush: MV P1/2t: 67.0 msec Ao max PG: LV V1 max: 65.6 cm/sec 4.8 mmHg 87.4 cm/sec MV E/A: 1.0 MVA(P1/2t): 3.3 cm2 MV dec slope: 291.3 cm/sec2 PA V2 max: PI end-d ankush: TR max ankush: 63.7 cm/sec 111.3 cm/sec 287.8 cm/sec PA max PG: TR max P.6 mmHg 33.1 mmHg Left Ventricle The left ventricle is normal in size. There is normal left ventricular wall thickness. LV EF is > than 60%. Left ventricular systolic function is normal. LV diastolic function not assessed. The left ventricular wall motion is normal. There is no thrombus. There is no ventricular septal defect visualized. Right Ventricle The right ventricle is grossly normal size. Atria The right atrium is normal. The left atrial size is normal. The interatrial septum is intact with no evidence for an atrial septal defect. Mitral Valve There is no evidence of mitral valve prolapse. There is no vegetation seen on the mitral valve. There is no mitral valve stenosis. There is a mild amount of mitral regurgitation. Aortic Valve There is no aortic valvular vegetation. There is no aortic valve stenosis. There is no LVOT obstruction. No aortic regurgitation is present. Tricuspid Valve There is no tricuspid stenosis. There is a mild amount of tricuspid regurgitation. There is mild pulmonary hypertension by echo. RVSP is 38 mm of Hg , with RA mean of 5. Pulmonic Valve There is no pulmonic valvular stenosis. There is a trace amount of pulmonic regurgitation. Great Vessels The aortic root is normal size. Effusions There is no pericardial effusion. : CARRIE MENDOZA > Carrie Mendoza
== END ==
LOC: SP 10:39
PROVIDERS: ATTEND Specialist
DX: R07.9 Chest pain, unspecified (principal); I48.0 Paroxysmal atrial fibrillation
CPT/HCPCS: 93306

== ENCOUNTER → 2017-06-13 | Outpatient (CLI) | payer MEDICARE, OTHER ==
[~2017-06-13] MED LIST: REGADENOSON INJ 0.4 MG/5 ML DISP.SYRIN IV ONE
--- NOTE | 2017-06-15 15:20 | DRAGON STRESS TEST REPORT ---
Intravenous Lexiscan Cardiolite stress test using single photon emmision computerized tomography. Date of procedure: 06/13/2017. Ordering Provider: Dr. Carrie Huang. Patient's status: Out Patient. Indication: Chest pain. Coronary risk factors: Age, hypertension, and paroxysmal atrial fibrillation. Resting EKG: Sinus Rhythm ST depression 1 mm in the inferior lateral leads and T inversion in inferior lateral leads Stress EKG: No changes of ischemia, in the form of increase in the ST segment and T changes Reason for termination: Protocol. Conclusions: Normal EKG and hemodynamic response to IV Lexiscan. Nuclear data: At rest the patient was given 11.63 millicuries of technetium 99m sestamibi injected intravenously. As per protocol rest non gated SPECT images were obtained. Subsequently the patient was given intravenous Lexiscan at a dose of 0.4 mg in 5 mL intravenously, followed by flush with normal saline. Subsequently the stress dose of 33.5 millicuries of technetium 99m sestamibi was injected intravenously. As per protocol stress gated images were obtained. Nuclear interpretation: Review of images showed that there was motion artifact and liver and bowel contamination artifact of the inferior wall. This is a poor quality study. In spite of this all segments of the myocardium had normal perfusion at rest, and normal perfusion post stress with IV Lexiscan. All segments of the myocardium had normal motion, contraction, and thickening by gated study. T. I D. ratio was normal at . Computer read rest, and stress left ventricular ejection fraction were 53 %, and 53 %, respectively. Visually both the stress and rest ejection fractions were normal, and greater than 55%. Conclusion: 1. There is no scintigraphic evidence of Lexiscan induced myocardial ischemia. 2. There is no scintigraphic evidence of myocardial infarction/scar. Recommendations: Aggressive risk factor modification, and treating the underlying co- morbidities. MTDD
== END ==
LOC: RAD 07:35
PROVIDERS: ATTEND Specialist
DX: R07.9 Chest pain, unspecified (principal)
CPT/HCPCS: 93017; 78452; A9500; J2785; Q9969

== ENCOUNTER → 2018-05-31 | Outpatient (CLI) | payer MEDICARE, OTHER ==
--- NOTE | 2018-05-31 11:53 | WOMENS IMAGING REPORT ---
EXAM DESCRIPTION: BILAT SCREENING MAMMO W/CAD COMPLETED DATE/TIME: 05/31/2018 9:49 am REASON FOR STUDY: ROUTINE BILATERAL SCREENING;Z12.31 Z12.31 ENCNTR SCREEN MAMMOGRAM FOR MALIGNANT N EOPLASM OF SHIVA COMPARISON: 2017 TECHNIQUE: Standard craniocaudal and mediolateral oblique views of each breast recorded using Intig[employer] l acquisition. LIMITATIONS: None. FINDINGS: No masses, calcifications or architectural distortion. No areas of suspicion. Read with the assistance of CAD. .[facility] - R2 Cenova Version 1.3 .[facility] Imaging - R2 Cenova Version 1.3 .[facility] - R2 Cenova Version 2.4 .[facility] [place] R2 Cenova Version 2.4 .[facility] - R2 [employer] Version 9.2 IMPRESSION: NORMAL MAMMOGRAM. BIRADS 1. BREAST DENSITY: b. There are scattered areas of fibroglandular density. BIRAD: 1 NEGATIVE RECOMMENDATION: ROUTINE SCREENING COMMENT: The patient has been notified of the results by letter per [place] requirements. Additional no tification policies are in place for contacting patient with suspicious or incomplete findings. Quality ID #[id number]: The [employer] recommends an annual screening mammogram for women aged 40 years or over. This facility utilizes a reminder system to ensure that all patients receive reminder letters, and/or direct phone calls for appointments. This includes reminders for routine scr eening mammograms, diagnostic mammograms, or other Breast Imaging Interventions when appropriate. Th is patient will be placed in the appropriate reminder system. The [employer] (ACR) has developed recommendations for screening MRI of the breast s in certain patient populations, to be used in conjunction with mammography. Breast MRI surveillanc e may be appropriate for women with more than 20% lifetime risk of developing breast cancer as deter mined by genetic testing, significant family history of the disease, or history of mantle radiation f or Hodgkins Disease. ACR Practice Guidelines 2008. TECHNICAL DOCUMENTATION: FINDING NUMBER: (1) ASSESSMENT: (1) JOB ID: [id number] [employer]- All Rights Reserved Reading location - IP/workstation name: [email or web address]
== END ==
LOC: WI 09:36
PROVIDERS: ATTEND Internal Medicine
DX: Z12.31 Encounter for screening mammogram for malignant neoplasm of breast (principal)
CPT/HCPCS: 77067

== ENCOUNTER → 2019-06-02 | Outpatient (CLI) | payer MEDICARE, OTHER ==
--- NOTE | 2019-06-02 08:40 | WOMENS IMAGING REPORT ---
EXAM DESCRIPTION: BILAT SCREENING MAMMO W/CAD COMPLETED DATE/TIME: 06/02/2019 8:18 am REASON FOR STUDY: Z12.31 SCREENING MAMMO Z12.31 ENCNTR SCREEN MAMMOGRAM FOR MALIGNANT NEOPLASM OF B RE COMPARISON: Digital bilateral screening mammograms dated 05/31/2018 and 05/30/2017. EXAM PARAMETERS: Standard craniocaudal and mediolateral oblique views of each breast recorded using digital acquisition. Read with the assistance of CAD. .[facility] - [employer] Videotape Editor Version 9.2 LIMITATIONS: None. FINDINGS: Findings present which are benign by mammographic criteria. No suspicious masses, calcifi cations or architectural distortion. Pertinent benign findings: Stable focal asymmetries in the breast. Benign mammographic findings may include one or more of the following: Smooth masses, popcorn/rim/co arse calcifications, asymmetries, post-procedure changes, and lesions with long-standing stability. IMPRESSION: BENIGN MAMMOGRAPHIC FINDINGS. BIRADS 2 BREAST DENSITY: b. There are scattered areas of fibroglandular density. BIRAD: ASSESSMENT: 2 BENIGN FINDING(S) RECOMMENDATION: 1. ROUTINE SCREENING COMMENT: The patient has been notified of the results by letter per MQSA requirements. Additional no tification policies are in place for contacting patient with suspicious or incomplete findings. Quality ID #[id number]: The [employer] recommends an annual screening mammogram for women aged 40 years or over. This facility utilizes a reminder system to ensure that all patients receive reminder letters, and/or direct phone calls for appointments. This includes reminders for routine scr eening mammograms, diagnostic mammograms, or other Breast Imaging Interventions when appropriate. Th is patient will be placed in the appropriate reminder system. TECHNICAL DOCUMENTATION: FINDING NUMBER: (1) ASSESSMENT: (1) JOB ID: [id number] [employer]- All Rights Reserved Reading location - IP/workstation name: [email or web address]
== END ==
LOC: WI 08:00
PROVIDERS: ATTEND Internal Medicine
DX: Z12.31 Encounter for screening mammogram for malignant neoplasm of breast (principal)
CPT/HCPCS: 77067

== ENCOUNTER → 2020-06-03 | Outpatient (CLI) | payer MEDICARE, OTHER ==
--- NOTE | 2020-06-03 09:41 | WOMENS IMAGING REPORT ---
EXAM DESCRIPTION: BILAT SCREENING MAMMO W/CAD IMAGES COMPLETED DATE/TIME: 06/03/2020 7:55 am REASON FOR STUDY: Z12.31 ENCOUNTER FOR SCREENING MAMMOGRAM FOR MALIGNANT NEOPLASM OF BREAST Z12.31 ENCNTR SCREEN MAMMOGRAM FOR MALIGNANT NEOPLASM OF SHIVA COMPARISON: Priors dating back to 2018 EXAM PARAMETERS: Standard craniocaudal and mediolateral oblique views of each breast recorded using digital acquisition. Read with the assistance of CAD. .[facility] - [employer] Version 9.2 LIMITATIONS: None. FINDINGS: No suspicious masses, suspicious calcifications or architectural distortion. No areas of c oncern. IMPRESSION: NEGATIVE MAMMOGRAM. BIRADS 1 BREAST DENSITY: b. There are scattered areas of fibroglandular density. BIRAD: ASSESSMENT: 1 NEGATIVE RECOMMENDATION: ROUTINE SCREENING COMMENT: The patient has been notified of the results by letter per MQSA requirements. Additional no tification policies are in place for contacting patient with suspicious or incomplete findings. Quality ID #[id number]: The [employer] recommends an annual screening mammogram for women aged 40 years or over. This facility utilizes a reminder system to ensure that all patients receive reminder letters, and/or direct phone calls for appointments. This includes reminders for routine scr eening mammograms, diagnostic mammograms, or other Breast Imaging Interventions when appropriate. Th is patient will be placed in the appropriate reminder system. TECHNICAL DOCUMENTATION: FINDING NUMBER: (1) ASSESSMENT: (1) JOB ID: [id number] 2010 [employer]- All Rights Reserved Reading location - IP/workstation name: [email or web address]
== END ==
LOC: WI 07:00
PROVIDERS: ATTEND Internal Medicine
DX: Z12.31 Encounter for screening mammogram for malignant neoplasm of breast (principal)
CPT/HCPCS: 77067